=== PATIENT | male | born 1955 | race Caucasian/White ===

== ENCOUNTER 2018-12-25 06:18 | Inpatient (IN) | payer BC ==
--- NOTE | 2018-12-20 10:00 | RAD REPORT ---
EXAM DESCRIPTION: RAD - Chest Pa And Lat (2 Views) - 12/20/2018 9:14 am CLINICAL HISTORY: Preop chest, pending knee surgery, smoking history COMPARISON: April 2016 TECHNIQUE: PA and lateral views of the chest were obtained. FINDINGS: The lungs are clear of an acute infiltrate, mass or failure finding. Mild prominence of th e interstitial pattern has not changed. Diaphragm is flattened. Mediastinal and hilar regions are not clearly different. Heart size is normal and central vasculature is within normal limits. No pleur al effusion or pneumothorax seen. No acute bony finding noted. No aortic abnormality. IMPRESSION: Fibrotic an obstructive lung changes are present similar to comparison. No acute finding .
[2018-12-20 10:39] LABS: Urine Appearance CLEAR; Urine Bilirubin NEGATIVE (NEG); Urine Blood NEGATIVE (NEG); Urine Color YELLOW; Urine Glucose 3+ (NEG); Urine Protein NEGATIVE (NEG); Urine Specific Gravity 1.025 (1.005-1.030)
[2018-12-20 10:43] LABS: Urine Microscopic Reflex NO UMIC
[2018-12-20 10:43] LABS: Absolute Lymphocytes (CBC) 1.4 K/uL (0.7-4.9); Absolute Monocytes 1.2 K/uL (0.1-1.3); Absolute Neutrophil 7.4 K/uL (1.8-8.0); Basophils % 0.2 % (0-1.3); Eosinophils % 0.9 % (0-4.4); Hematocrit 43.3 % (39.6-49.0); Lymphocytes % 13.9 % (15.3-44.8); MPV 9.3 fL (7.6-11.3); Monocytes % 11.7 % (3.3-12.3); RBC Red Blood Cell Count 4.88 M/uL (4.33-5.43)
[2018-12-20 10:49] LABS: Protime INR 1.02
[2018-12-20 10:51] LABS: ALT/SGPT 20 U/L (12-78); AST/SGOT 12 U/L (15-37); Albumin 3.4 g/dL (3.4-5.0); Alkaline Phosphatase 66 U/L (45-117); BUN Blood Urea Nitrogen 16 mg/dL (7-18); Bicarbonate 30 mmol/L (21-32); Bilirubin Total 0.4 mg/dL (0.2-1.0); Glucose Level 110 mg/dL (74-106); Potassium 4.1 mmol/L (3.5-5.1); Protein, Total 7.1 g/dL (6.4-8.2); Sodium Level 144 mmol/L (136-145)
[2018-12-20 10:54] LABS: Albumin 3.4 g/dL (3.4-5.0); Bilirubin Direct 0.1 mg/dL (0-0.2); Bilirubin Total 0.4 mg/dL (0.2-1.0); Protein, Total 7.1 g/dL (6.4-8.2)
--- OUTSIDE RECORDS SUMMARY | 2018-12-25 06:25 | XMS REPORT | Continuity of Care Document ---
:[address] [facility] Care Team Providers Name Role Phone MD Chavez Robert Unavailable Unavailable Insurance Providers Payer name Policy type / Policy ID Covered libertarian ID Policy [employer] Coverage type [facility] (PPO) Encounters Encounter Performer Location Date Lab Report Jl Chavez MD [facility] [place] Sep 22, 2014 Internal Medicine Allergies, Adverse Reactions, Alerts Type Substance Reaction Status Drug allergy CODIENE rash Active Problems Problem Effective Dates Problem Status DEPRESSION Active FATIGUE Dec 16, 2013 Active HYPERLIPIDEMIA Dec 16, 2013 Active Procedures Date Description Comments Dec 16, 2013 smoking status current every day smoker Dec 28, 2006 colonoscopy 12/28/2006 May 12, 2014 smoking status Current every day smoker Sep 22, 2014 smoking status Current every day smoker Medications Medication Instructions Start Date Status PRAVASTATIN SODIUM 80 MG TABS 1 po daily Dec 16, 2013 Active MELATONIN ER 3 MG CR-TABS 1 po qHS prn sleep Dec 16, 2013 Active VENLAFAXINE HCL 75 MG TABS 1 TAB PO DAILY Jan 16, 2014 Active CELEBREX 200 MG CAPS 1 CAP PO DAILY as needed for Jan 16, 2014 Active pain MYRBETRIQ 25 MG [id number] 1 by mouth daily Jan 16, 2014 Active TAMSULOSIN HCL 0.4 MG CAPS 1 by mouth with evening meal Jan 16, 2014 Active ZOLPIDEM TARTRATE 10 MG TABS 1 po qHS prn sleep Dec 16, 2013 Inactive ANDROGEL PUMP 20.25 MG/ACT apply 2 pumps to skin daily Dec 16, 2013 Inactive (1.62%) GEL LUNESTA 3 MG TABS 1 tablet at bedtime as needed May 12, 2014 Active for insomnia Vital Signs Date Description Test Result Dec 16, 2013 height E&M - 8302-2 HEIGHT 70.75 in Dec 16, 2013 weight E&M - 3141-9 WEIGHT 286 lb Dec 16, 2013 temperature E&M TEMPERATURE 98.1 deg f Dec 16, 2013 pulse rate E&M - 8867-4 PULSE RATE 64 /min Dec 16, 2013 blood pressure, systolic - 8480-6 BP SYSTOLIC 144 mm Hg Dec 16, 2013 blood pressure, diastolic - 8462-4 BP DIASTOLIC 90 mm Hg May 12, 2014 weight E&M - 3141-9 WEIGHT 284 lb May 12, 2014 temperature E&M TEMPERATURE 98.2 deg f May 12, 2014 pulse rate E&M - 8867-4 PULSE RATE 72 /min May 12, 2014 blood pressure, systolic - 8480-6 BP SYSTOLIC 140 mm Hg May 12, 2014 blood pressure, diastolic - 8462-4 BP DIASTOLIC 96 mm Hg Sep 22, 2014 weight E&M - 3141-9 WEIGHT 285 lb Sep 22, 2014 temperature E&M TEMPERATURE 97.9 deg f Sep 22, 2014 pulse rate E&M - 8867-4 PULSE RATE 80 /min Sep 22, 2014 blood pressure, systolic - 8480-6 BP SYSTOLIC 132 mm Hg Sep 22, 2014 blood pressure, diastolic - 8462-4 BP DIASTOLIC 94 mm Hg Results Date Description Test Name Value Reference Interpretation Status May 05, cholesterol, serum CHOLESTEROL 160 mg/dl [phone] May 05, HDL cholesterol, HDL 47 mg/dl -62 2013 serum May 05, LDL cholesterol, LDL 87 mg/dl 0-130 2013 serum May 05, albumin, serum ALBUMIN 4.1 g/dL 3.5-5.0 2013May 05, alkaline phosphatase, ALK PHOS 71 U/L 2013May 05, aspartate SGOT (AST) 19 U/L 2013 aminotransferase (SGOT), serum May 05, alanine SGPT (ALT) 23 U/L 2013 aminotransferase (SGPT), serum Sep 22, cholesterol, serum CHOLESTEROL 164 mg/dl [phone] Sep 22, HDL cholesterol, HDL 52 mg/dl -62 2013Sep 22, LDL cholesterol, LDL 86 mg/dl 0-130 2013 serum Sep 22, albumin, serum ALBUMIN 4.3 g/dL 3.5-5.0 2013Sep 22, alkaline phosphatase, ALK PHOS 77 U/L -2013Sep 22, aspartate SGOT (AST) 19 U/L 2013 aminotransferase (SGOT), serum Sep 22, alanine SGPT (ALT) 23 U/L 2013 aminotransferase (SGPT), serum
--- OUTSIDE RECORDS SUMMARY | 2018-12-25 06:25 | XMS REPORT | Summary of Care ---
:1955 Author Organization [facility] Urology [facility] Address [address] [address] Encounter HQ Encntr_alias(FIN) [id number] Date(s): 08/29/17 - 08/30/17 [facility] [address] [place] [phone] Vital Signs No data available for this section Problem List Condition Effective Dates Status Health Status Informant Arthritis(Confirmed) Active Ongoing use of possibly toxic Active medication(Confirmed) Benign prostatic hypertrophy with 05/06/15 Active outflow obstruction1, 2 Depressive disorder3 Active Fatigue4 12/16/13 Active Hyperlipidemia5 12/16/13 Active 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 Allergies, Adverse Reactions, Alerts Substance Reaction Severity Status codeine Active Medications tamsulosin 0.4 mg oral capsule See Instructions, # 90 unknown unit, Refill(s) 1, TAKE 1 CAPSULE DAILY, Pharmacy : [facility] Start Date: 08/29/17 Status: Ordered Results No data available for this section Immunizations No data available for this section Procedures Procedure Date Related Diagnosis Body Site Hip replacement 07/04/16 Arthroscopy of knee Injection1 Injection2 Social History Social History Type Response Employment/School Status: Retired. Alcohol Current, Type Beer. Frequency: 1-2 times per week. Smoking Status Current every day smoker; Type: Cigarettes; Exposure to Tobacco Smoke pt is a smoker; Cigarette Smoking Last 365 Days Yes; Reg Smoking Cessation Counseling No; Tobacco use per day: 1; Started at age: 20.0; 1 1Patient states he has smoked 3 packs per week for the last 40 years Assessment and Plan No data available for this section
--- OUTSIDE RECORDS SUMMARY | 2018-12-25 06:25 | XMS REPORT | Continuity of Care Document ---
:[address] [facility] Care Team Providers Name Role Phone MD Jean Zachary Unavailable Unavailable Insurance Providers Payer name Policy type / Policy ID Covered democrat ID Policy [employer] Coverage type [facility] (O) Encounters Encounter Performer Location Date Lab Report Juliano Jean MD [facility] May 06, 2015 ([facility]) Urology Allergies, Adverse Reactions, Alerts Type Substance Reaction Status Drug allergy CODIENE rash Active Problems Problem Effective Dates Problem Status DEPRESSION Active FATIGUE Dec 16, 2013 Active HYPERLIPIDEMIA Dec 16, 2013 Active BPH WITH OBSTRUCTION/LUTS May 06, 2015 Active URGENCY OF URINATION May 06, 2015 Active Procedures Date Description Comments Dec 16, 2013 smoking status current every day smoker Dec 28, 2006 colonoscopy 12/28/2006 May 12, 2014 smoking status Current every day smoker Sep 22, 2014 smoking status Current every day smoker Jan 21, 2015 smoking status Current every day smoker Medications [...] 16, 2014 Active pain MYRBETRIQ 25 MG [id number] 1 by mouth daily Jan 16, 2014 [...] - 8462-4 BP DIASTOLIC 94 mm Hg Jan 21, 2015 height E&M - 8302-2 HEIGHT 71.0 in Jan 21, 2015 weight E&M - 3141-9 WEIGHT 297 lb Jan 21, 2015 temperature E&M TEMPERATURE 98.1 deg f Jan 21, 2015 pulse rate E&M - 8867-4 PULSE RATE 60 /min Jan 21, 2015 blood pressure, systolic - 8480-6 BP SYSTOLIC 118 mm Hg Jan 21, 2015 blood pressure, diastolic - 8462-4 BP DIASTOLIC 86 mm Hg May 06, 2015 weight E&M - 3141-9 WEIGHT 288 lb May 06, 2015 pulse rate E&M - 8867-4 PULSE RATE 64 /min May 06, 2015 blood pressure, systolic - 8480-6 BP SYSTOLIC 132 mm Hg May 06, 2015 blood pressure, diastolic - 8462-4 BP DIASTOLIC 88 mm Hg Results Date Description Test Name Value Reference Interpretation Status Jan 21, hemoglobin, blood HGB 15.0 g/dL 12.3-17.3 2014Jan 21, hematocrit, blood HCT 44.6 % 36.7-50.5 2014May 05, cholesterol, serum CHOLESTEROL 160 mg/dl [phone] May 05, HDL cholesterol, HDL 47 mg/dl 26-62 2013 serum May 05, LDL cholesterol, LDL 87 mg/dl 0-130 2013 serum May 05, albumin, serum ALBUMIN 4.1 g/dL 3.5-5.0 2013May 05, alkaline phosphatase, ALK PHOS 71 U/L 2013 serum May 05, aspartate SGOT (AST) 19 U/L 2013 aminotransferase (SGOT), serum May 05, alanine SGPT (ALT) 23 U/L 2013 aminotransferase (SGPT), serum Sep 22, cholesterol, serum CHOLESTEROL 164 mg/dl [phone] Sep 22, HDL cholesterol, HDL 52 mg/dl 26-62 2013 serum Sep 22, LDL cholesterol, LDL 86 mg/dl 0-130 2013 serum Sep 22, albumin, serum ALBUMIN 4.3 g/dL 3.5-5.0 2013Sep 22, alkaline phosphatase, ALK PHOS 77 U/L 2013Sep 22, aspartate SGOT (AST) 19 U/L 2013 aminotransferase (SGOT), serum Sep 22, alanine SGPT (ALT) 23 U/L 2013 aminotransferase (SGPT), serum Jan 21, thyroxine, serum, T4, TOTAL 10.6 ug/dl 5.1-11.1 2014 total Jan 21, thyroid stimulating TSH 1.02 0.34-5.60 2015 hormone, serum uIU/mL May 06, prostate specific PSA 1.00 ng/mL 0.00-4.00 2015 antigen
--- OUTSIDE RECORDS SUMMARY | 2018-12-25 06:25 | XMS REPORT | Continuity of Care Document ---
:1955 Author Organization [facility] Care Team Providers Name Role Phone MD Chavez Robert Unavailable Unavailable Insurance Providers Payer name Policy type / Policy ID Covered green party ID Policy [employer] Coverage type [facility] (PPO) Encounters Encounter Performer Location Date Lab Report Jl Chavez MD [facility] [place] Sep 22, 2014 Internal [...] 1 CAP PO DAILY as needed for pain Jan 16, 2014 Active MYRBETRIQ 25 MG [id number] 1 by mouth daily Jan 16, 2014 Active TAMSULOSIN HCL 0.4 MG CAPS 1 by mouth with evening meal Jan 16, 2014 Active ZOLPIDEM TARTRATE 10 MG TABS 1 po qHS prn sleep Dec 16, 2013 Inactive Vital Signs Date Description Test Result Dec [...] May 05, cholesterol, serum CHOLESTEROL 160 mg/dl [phone] May 05, HDL cholesterol, HDL 47 mg/dl -2013 serum May 05, LDL cholesterol, LDL 87 mg/dl 0-130 2013 serum May 05, albumin, serum ALBUMIN 4.1 g/dL 3.5-5.0 2013May 05, alkaline phosphatase, ALK PHOS 71 U/L 2013 serum May 05, aspartate SGOT (AST) 19 U/L 2013 aminotransferase (SGOT), serum May 05, alanine SGPT (ALT) 23 U/L 2013 aminotransferase (SGPT), serum Sep 22, cholesterol, serum CHOLESTEROL 164 mg/dl [phone] Sep 22, HDL cholesterol, HDL 52 mg/dl -2013 serum Sep 22, LDL cholesterol, LDL 86 mg/dl 0-130 2013 serum Sep 22, albumin, serum ALBUMIN 4.3 g/dL 3.5-5.0 2013Sep 22, alkaline phosphatase, ALK PHOS 77 U/L 2013 serum Sep 22, aspartate SGOT (AST) 19 U/L 2013 aminotransferase (SGOT), serum Sep 22, alanine SGPT (ALT) 23 U/L 2013 aminotransferase (SGPT), serum
--- OUTSIDE RECORDS SUMMARY | 2018-12-25 06:25 | XMS REPORT | Continuity of Care Document ---
:1955 Author Organization [facility] Care Team Providers Name Role Phone MD Chavez Robert Unavailable Unavailable Insurance Providers Payer name Policy type / Policy ID Covered constitution party ID Policy [employer] Coverage type [facility] (O) Encounters Encounter Performer Location Date Lab Report Jl Chavez MD [facility] [place] Jan 21, 2015 Internal Medicine Allergies, Adverse Reactions, Alerts Type [...] 16, 2014 Active pain MYRBETRIQ 25 MG [id number] 1 by mouth daily Jan 16, 2014 [...] - 8462-4 BP DIASTOLIC 86 mm Hg Results Date Description Test Name Value Reference Interpretation Status Jan 21, hemoglobin, blood HGB 15.0 g/dL 12.3-17.3 2014Jan 21, hematocrit, blood HCT 44.6 % 36.7-50.5 2014May 05, cholesterol, serum CHOLESTEROL 160 mg/dl [phone] May 05, HDL cholesterol, HDL 47 mg/dl 26-62 2013May 05, LDL cholesterol, LDL 87 mg/dl 0-130 2013 serum May 05, albumin, serum ALBUMIN 4.1 g/dL 3.5-5.0 2013May 05, alkaline phosphatase, ALK PHOS 71 U/L 32-96 2013 serum May 05, aspartate SGOT (AST) 19 U/L 10-42 2013 aminotransferase (SGOT), serum May 05, alanine SGPT (ALT) 23 U/L 11-43 2013 aminotransferase (SGPT), serum Sep 22, cholesterol, serum CHOLESTEROL 164 mg/dl [phone] Sep 22, HDL cholesterol, HDL 52 mg/dl 26-62 2013 serum Sep 22, LDL cholesterol, LDL 86 mg/dl 0-130 2013 serum Sep 22, albumin, serum ALBUMIN 4.3 g/dL 3.5-5.0 2013Sep 22, alkaline phosphatase, ALK PHOS 77 U/L 32-96 2013 serum Sep 22, aspartate SGOT (AST) 19 U/L 10-42 2013 aminotransferase (SGOT), serum Sep 22, alanine SGPT (ALT) 23 U/L 11-43 2013 aminotransferase (SGPT), serum Jan 21, thyroxine, serum, T4, TOTAL 10.6 ug/dl 5.1-11.1 2014 total Jan 21, thyroid stimulating TSH 1.02 0.34-5.60 2015 hormone, serum uIU/mL
--- OUTSIDE RECORDS SUMMARY | 2018-12-25 06:25 | XMS REPORT | Summary of Care ---
:1955 Author Organization [facility] Urology [facility] Address [address] [address] Encounter HQ Encntr_alilu(FIN) [id number] Date(s): 04/07/18 - 04/08/18 [facility] [address] [place] [phone] Vital Signs No data available for this [...] Substance Reaction Severity Status codeine Active Medications No data available for this section Results No data available for this section Immunizations No data available for this section Procedures Procedure Date Related Diagnosis Body Site Status Hip replacement 07/04/16 Completed Arthroscopy of knee Completed Injection1 Completed Injection2 Completed Social History Social History Type Response Employment/School Status: Retired. Alcohol Current, Type Beer. Frequency: 1-2 times per week. Smoking Status Current every day smoker; Type: Cigarettes; Exposure to Tobacco Smoke pt is a smoker; Cigarette Smoking Last 365 Days Yes; Reg Smoking Cessation Counseling No; Tobacco use per day: 1; Started at age: 20.0; 1 entered on: 10/06/16 1Patient states he has smoked 3 packs per week for the last 40 years Assessment and Plan No data available for this section
--- OUTSIDE RECORDS SUMMARY | 2018-12-25 06:25 | XMS REPORT | Summary of Care ---
:1955 Author Organization [facility] Cardiology [facility] Address [address] [address] Encounter HQ Leonr_tien(FIN) [id number] Date(s): 12/12/18 - 12/12/18 [facility] Cardiology [facility] [address] [place] [phone] Discharge Disposition: Home or Self Care Attending Physician: VISIT, NURSE STRB SLEEP Vital Signs Most recent to oldest [Reference Range]: 1 Blood Pressure [90-140/60-90 mmHg] 119/69 mmHg (12/12/18 9:46 AM) Peripheral Pulse Rate [60-100 bpm] 69 bpm (12/12/18 9:46 AM) Problem List Condition Effective Dates Status Health Status Informant Arthritis(Confirmed) Active Ongoing use of possibly toxic Active medication(Confirmed) Benign prostatic hypertrophy with 05/06/15 Active outflow obstruction1, 2 Depressive disorder3 Active Diabetes(Confirmed) Active Fatigue4 12/16/13 Active Hyperlipidemia5 12/16/13 Active Hypersomnia with sleep 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 Active Hypertension(Confirmed) Active Initial insomnia(Confirmed) Active Morbid obesity(Confirmed) Active Nocturia(Confirmed) Active Obesity(Confirmed) Active Obstructive sleep apnea, Active adult(Confirmed) Preop cardiovascular exam(Confirmed) Active Urgent desire to urinate7, 8 05/06/15 Active 1Data migrated from [employer] on 06/06/15.2Data migrated from [employer] on 05/20/15.3Data migrated from [employer] on 03/17/15.4Data migrated from [employer] on 03/17/15.5Data migrated from [employer] on 03/17/15.6Data migrated from [employer] on 06/06/15.7Data migrated from [employer] on .8Data migrated from [employer] on 05/20/15. Allergies, Adverse Reactions, Alerts Substance Reaction Severity Status codeine Active Medications Jardiance 25 mg oral tablet 25 mg=1 tab, PO, QAM, 0 Refill(s) Start Date: 12/12/18 Status: OrderedmetFORMIN 500 mg oral tablet 500 mg=1 tab, PO, BID-Meals, # 30 tab, 0 Refill(s) Start Date: 12/12/18 Status: Orderedmultivitamin Daily, 0 Refill(s) Start Date: 12/12/18 Status: OrderedOmega-3 oral capsule 0 Refill(s) Start Date: 12/12/18 Status: Orderedoxybutynin 10 mg oral tablet, extended release 10 mg=1 tab, PO, Daily, # 30 tab, 0 Refill(s) Start Date: 12/12/18 Status: Orderedtrazodone 50 mg oral tablet 50 mg=1 tab, PO, TID, 0 Refill(s) Start Date: 12/12/18 Status: OrderedVitamin D2 See Instructions, PO, 0 Refill(s) Start Date: 12/12/18 Status: Ordered Results No data available for [...] Started at age: 20.0; 1 entered on: 12/12/18 1Patient states he has smoked 3 packs per week for the last 40 years Assessment and Plan No data available for this section
--- OUTSIDE RECORDS SUMMARY | 2018-12-25 06:25 | XMS REPORT | Continuity of Care Document ---
:1955 Author Organization Interface Problems Problem Status Onset Classification Date Comments Source Date Reported Hypersomnia with Active 05/25/20 Problem 12/14/2018 Data migrated Medical sleep 15 from GE Group apnea<sup>6</sup> Centricity on 06/06/15. HYPERSOMNIA Active 05/25/20 Condition 06/29/2015 Medical W/SLEEP APNEA 15 Group Benign prostatic Active 05/06/20 Problem 12/14/2018 Data migrated Medical hypertrophy with 15 from GE Group outflow Centricity on obstruction<sup>1 05/20/15. , 2</sup> Urgent desire to Active 05/06/20 Problem 12/14/2018 Data migrated Medical urinate<sup>7, 15 from [facility] Group 8</sup> Centricity on 05/20/15. BPH WITH Active 05/06/20 Condition 06/29/2015 Medical OBSTRUCTION/LUTS 15 Group URGENCY OF Active 05/06/20 Condition 06/29/2015 Medical URINATION 15 Group ELIA Active 02/06/20 [place] 15 Land Fatigue<sup>4</skelton Active 12/17/19 Problem 12/14/2018 Data migrated Medical p> 14 from GE Group Centricity on 03/17/15. Hyperlipidemia<skelton Active 12/17/19 Problem 12/14/2018 Data migrated Medical p>5</sup> 14 from GE Group Centricity on 03/17/15. FATIGUE Active 12/17/19 Condition 06/29/2015 Medical 14 Group HYPERLIPIDEMIA Active 12/17/19 Condition 06/29/2015 Medical 14 Group Arthritis Active Problem 12/14/2018 Medical Group Ongoing use of Active Problem 12/14/2018 Medical possibly toxic Group medication Depressive Active Problem 12/14/2018 Data migrated Medical disorder<sup>3</s from GE Group up> Centricity on 03/17/15. Initial insomnia Active Problem 12/14/2018 Medical Group Morbid obesity Active Problem 12/14/2018 Medical Group Nocturia Active Problem 12/14/2018 Medical Group Obesity Active Problem 12/14/2018 Medical Group Obstructive sleep Active Problem 12/14/2018 Medical apnea, adult Group Diabetes Active Problem 12/14/2018 Medical Group Hypertension Active Problem 12/14/2018 Medical Group Preop Active Problem 12/14/2018 Medical cardiovascular Group exam DEPRESSION Active Condition 06/29/2015 Medical Group Smoking addiction Active Problem 09/29/2018 [facility] Primary insomnia Active Problem 09/29/2018 [facility] Anxiety Active Problem 09/29/2018 [facility] ELIA Active Problem 09/29/2018 [facility] Increased urinary Active Diagnosis 01/19/2018 Center for frequency Primary Care Depression, Active Problem 09/29/2018 [facility] for major, recurrent, Primary moderate Care Mixed Active Problem 09/29/2018 [facility] for hyperlipidemia Primary Care Uncontrolled Active Diagnosis 09/29/2018 [facility] for diabetes mellitus Primary type 2 without Care complications, unspecified alf insulin use status New onset type 2 Active Diagnosis 05/31/2017 [facility] for diabetes mellitus Primary Care Medications Medication Details Route Status Patient Ordering Order Source Instructions Provider Date empagliflozin 25 mg=1 Active 25 MG Oral tab, PO, 019 Medical Tablet QAM, 0 Group [Jardiance] Refill(s) multivitamin Daily, 0 Active Refill(s) 019 Medical Group Metformin 500 mg=1 Active hydrochloride tab, PO, 019 Medical 500 MG Oral BID-Meals, Group Tablet # 30 tab, 0 Refill(s) [place]-3 oral 0 Active capsule Refill(s) 019 Medical Group Trazodone 50 mg=1 Active Hydrochloride tab, PO, 019 Medical 50 MG Oral TID, 0 Group Tablet Refill(s) Vitamin D2 See Active In[facility] 019 Medical ns, PO, 0 Group Refill(s) oxybutynin 10 10 mg=1 Active MH mg oral tablet, tab, PO, 019 Medical extended Daily, # Group release 30 tab, 0 Refill(s) Jardiance 1 tablet Orally Active 10 MG Orally [facility] Once a day 018 for Primary Care CPAP with use with per mask of Active cm H20 per [facility] supplies and sleep choice mask of choice 018 for mask of choice daily Primary Care tamsulosin 0.4 See Active MH mg oral capsule Instructio 017 Medical ns, # 90 Group unknown unit, Refill(s) 1, TAKE 1 CAPSULE DAILY, Pharmacy: [facility] Verio as In Vitro Active - In Vitro BID [facility] directed 017 for Primary Care ONE TOUCH ULTRA as In Vitro Active In Vitro Twice [facility] GLUCOMETER directed a day AC and 017 for STARTER as directed Primary Care ONE TOUCH ULTRA Check CBGs Intradermal Active Glucometer [facility] TEST SUPPLIES BID as Supplies 017 for directed Intradermal Primary Twice per day Care AC as directed LUNESTA 3 MG 1 tablet Active MH TABS at bedtime 014 Medical as needed Group for insomnia LUNESTA 3 MG 1 tablet Active MH TABS at bedtime 014 Medical as needed Group for insomnia VENLAFAXINE HCL 1 TAB PO Active MH 75 MG TABS DAILY 014 Medical Group MYRBETRIQ 25 MG 1 by mouth Active MH [id number] daily 014 Medical Group TAMSULOSIN HCL 1 by mouth Active MH 0.4 MG CAPS with 014 Medical evening Group meal CELEBREX 200 MG 1 CAP PO No MH CAPS DAILY as Longer 014 Medical needed for Active Group pain VENLAFAXINE HCL 1 TAB PO Active MH 75 MG TABS DAILY 014 Medical Group CELEBREX 200 MG 1 CAP PO Active MH CAPS DAILY as 014 Medical needed for Group pain PRAVASTATIN 1 po daily Active MH SODIUM 80 MG 014 Medical TABS Group MELATONIN ER 3 1 po qHS Active MH MG CR-TABS prn sleep 014 Medical Group ZOLPIDEM 1 po qHS No MH TARTRATE 10 MG prn sleep Longer 014 Medical TABS Active Group ANDROGEL PUMP apply 2 No MH 20.25 MG/ACT pumps to Longer 014 Medical (1.62%) GEL skin daily Active Group ZOLPIDEM 1 po qHS No MH TARTRATE 10 MG prn sleep Longer 014 Medical TABS Active Group Ditropan XL 1 upto 2 Orally Active 5 MG Orally [facility] tablet Once a day for Primary Care MetFORMIN HCl 2 tablet Oral Active 500MG Oral [facility] ER with meals Twice a day for Primary Care Allergies, Adverse Reactions, Alerts Substance Category Reaction Severity Reaction Status Date Comments Source type Reported CODIENE Drug CODIENE allergy 4 Medical Group codeine Assertion Drug Active allergy Medical Group Immunizations Immunization Date Given Site Status Last Updated Comments Source Results Order Name Results Value Reference Date Interpretation Comments Source Range Chemistry PSA 1.00 0.00 - 4.00 ng/mL 2014 Medical Group Chemistry T4, TOTAL 10.6 5.1 - 11.1 ug/dl 2014 Medical Group Chemistry TSH 1.02 0.34 - 5.60 uIU/mL 2014 Medical Group Hematology HGB 15.0 12.3 - 17.3 g/dL 2014 Medical Group Hematology HCT 44.6 % 36.7 - 50.5 2014 Medical Group Chemistry CHOLESTEROL 164 120 - 200 mg/dl 2013 Medical Group Chemistry HDL 52 26 - 62 mg/dl 2013 Medical Group Chemistry LDL 86 0 - 130 mg/dl 2013 Medical Group Chemistry ALBUMIN 4.3 3.5 - 5.0 g/dL 2013 Medical Group Chemistry ALK PHOS 77 U/L 32 - 96 2013 Medical Group Chemistry SGOT (AST) 19 U/L 10 - 42 2013 Medical Group Chemistry SGPT (ALT) 23 U/L 11 - 43 2013 Medical Group Chemistry CHOLESTEROL 164 120 - 200 mg/dl 2013 Medical Group Chemistry HDL 52 26 - 62 mg/dl 2013 Medical Group Chemistry CHOLESTEROL 160 120 - 200 mg/dl 2013 Medical Group Chemistry HDL 47 26 - 62 mg/dl 2013 Medical Group Chemistry LDL 87 0 - 130 mg/dl 2013 Medical Group Chemistry ALBUMIN 4.1 3.5 - 5.0 g/dL 2013 Medical Group Chemistry ALK PHOS 71 U/L 32 - 96 2013 Medical Group Chemistry SGOT (AST) 19 U/L 10 - 42 2013 Medical Group Chemistry SGPT (ALT) 23 U/L 11 - 43 2013 Medical Group Chemistry CHOLESTEROL 160 120 - 200 mg/dl 2013 Medical Group Chemistry HDL 47 26 - 62 mg/dl 2013 Medical Group Vital Signs Vital Sign Value Date Comments Source Heart Rate 69 12/12/2018 Medical Group Systolic (mm Hg) 119 12/12/2018 Medical Group Diastolic (mm Hg) 69 12/12/2018 Medical Group Weight 285 06/05/2015 Medical Group Temperature Oral (F) 98.2 F 06/05/2015 Medical Group Heart Rate 68 06/05/2015 Medical Group Systolic (mm Hg) 116 06/05/2015 Medical Group Diastolic (mm Hg) 76 06/05/2015 Medical Group Weight 282 05/25/2015 Medical Group Temperature Oral (F) 98.1 F 05/25/2015 Medical Group Heart Rate 64 05/25/2015 Medical Group Systolic (mm Hg) 130 05/25/2015 Medical Group Diastolic (mm Hg) 96 05/25/2015 Medical Group Weight 288 05/06/2015 Medical Group Heart Rate 64 05/06/2015 Medical Group Systolic (mm Hg) 132 05/06/2015 Medical Group Diastolic (mm Hg) 88 05/06/2015 Medical Group Height 71.0 01/21/2015 Medical Group Weight 297 01/21/2015 Medical Group Temperature Oral (F) 98.1 F 01/21/2015 Medical Group Heart Rate 60 01/21/2015 Medical Group Systolic (mm Hg) 118 01/21/2015 Medical Group Diastolic (mm Hg) 86 01/21/2015 Medical Group Weight 285 09/22/2014 Medical Group Temperature Oral (F) 97.9 F 09/22/2014 Medical Group Heart Rate 80 09/22/2014 Medical Group Systolic (mm Hg) 132 09/22/2014 Medical Group Diastolic (mm Hg) 94 09/22/2014 Medical Group Weight 284 05/12/2014 Medical Group Temperature Oral (F) 98.2 F 05/12/2014 Medical Group Heart Rate 72 05/12/2014 Medical Group Systolic (mm Hg) 140 05/12/2014 Medical Group Diastolic (mm Hg) 96 05/12/2014 Medical Group Height 70.75 12/16/2013 Medical Group Weight 286 12/16/2013 Medical Group Temperature Oral (F) 98.1 F 12/16/2013 Medical Group Heart Rate 64 12/16/2013 Medical Group Systolic (mm Hg) 144 12/16/2013 Medical Group Diastolic (mm Hg) 90 12/16/2013 Medical Group Encounters Location Location Encounter Encounter Reason Attending ADM DC Status Source Details Type Number For Provider Date Date Visit [facility] Lab Report [id number] Pat[place] 09/22 09/22 [place] [facility] [address] [facility] Juliann Omalley MD Group Internal Medicine [facility] Office [id number] Pat[place] 01/21 01/21 [place] [id number] [facility] Juliann Omalley MD Group Internal Medicine [facility] Lab Report [id number] 01/21 [place] [address] [facility] Juliann Omalley MD [facility] Internal Medicine [facility] [place] Lab Report [id number] [place] 05/06 05/06 [place] [id number] MD Miranda /2014 Medical [facility] Urology Outpatient [id number] [place] 05/06 [facility] [place] [facility] [place] Office [id number] [place] 05/25 05/25 [place] [id number] MD Miranda /2014 Medical Shahram [facility] Internal Medicine Outpatient [id number] 05/25 Active [facility] 2 [facility] Office [id number] [place] 06/26 06/26 [place] Visit [id number] MD Miranda /2014 Medical [facility] Group Internal Medicine Outpatient [id number] 06/26 Active [facility] 5 [facility] Office [id number] [place] 06/29 06/29 [place] Visit [id number] MD Miranda /2014 Medical Omalley [facility] Internal Medicine Outpatient [id number] 06/29 Active [facility] 4 [facility] Outpatient [id number] ARM[place] 08/12 Active [facility] [place] Outpatient [id number] 09/25 Active [facility] 6 [place] Outpatient [id number] 10/21 Active [facility] 8 [facility]patient [id number] PATI 12/31 Active [facility] 9 [place] Outpatient [id number] PATI 01/25 Active [facility] 0 [place] Outpatient [id number] PATI 03/31 Active [facility] 1 [facility] Outpatient [id number] MONICA 04/13 Active [facility] 1 [place] Outpatient [id number] PATI 05/24 Active [facility] 2 [place] Outpatient [id number] PATI 06/23 Active [facility] 3 [facility] Outpatient [id number] PATI 10/06 Active [facility] 6 [place] Outpatient [id number] PATI 11/14 Active [facility] 4 [facility] Phone [id number] 08/29 08/31 Urology Message [facility] [place] [facility] Outside [id number] 04/07 04/09 Urology [facility] [place] [facility] Outpatient [id number] MOE NORA 12/12 Active [facility] Outpatient [id number] NURSE VISIT 12/12 12/13 Cardiology [facility] [place] [facility] Procedures Procedure Code Date Perfomer Comments Source Hip replacement [id number] 07/04/2016 Medical Group colonoscopy 60233 12/28/2006 12/28/2006 Medical Group Arthroscopy of [id number] Medical knee Group Injection<sup>1</s [id number] 07/2015 Medical up> Group Injection<sup>2</s [id number] 07/2015 Medical up> Group
--- OUTSIDE RECORDS SUMMARY | 2018-12-25 06:26 | XMS REPORT | Continuity of Care Document ---
:1955 Author Organization [facility] Care Team Providers Name Role Phone MD Jean Zachary Unavailable Unavailable Insurance Providers Payer name Policy type / Policy ID Covered libertarian ID Policy Baxter Coverage type [facility] (O) Encounters Encounter Performer Location Date Office Visit Juliano Jean MD [facility] Medical [place] Internal Jun 29, 2015 Medicine Allergies, Adverse Reactions, Alerts Type Substance Reaction Status Drug allergy CODIENE rash Active Problems Problem Effective Dates Problem Status DEPRESSION Active FATIGUE Dec 16, 2013 Active HYPERLIPIDEMIA Dec 16, 2013 Active BPH WITH OBSTRUCTION/LUTS May 06, 2015 Active URGENCY OF URINATION May 06, 2015 Active HYPERSOMNIA W/SLEEP APNEA May 25, 2015 Active Procedures Date Description Comments Dec 16, 2013 smoking status current every day smoker Dec 28, 2006 colonoscopy 12/28/2006 May 12, 2014 smoking status Current every day smoker Sep 22, 2014 smoking status Current every day smoker Jan 21, 2015 smoking status Current every day smoker May 25, 2015 smoking status Current every day smoker Medications Medication Instructions Start Date Status PRAVASTATIN SODIUM 80 MG TABS 1 po daily Dec 16, 2013 Active MELATONIN ER 3 MG CR-TABS 1 po qHS prn sleep Dec 16, 2013 Active VENLAFAXINE HCL 75 MG TABS 1 TAB PO DAILY Jan 16, 2014 Active MYRBETRIQ 25 MG [id number] 1 by mouth daily Jan 16, 2014 [...] needed May 12, 2014 Active for insomnia CELEBREX 200 MG CAPS 1 CAP PO DAILY as needed for Jan 16, 2014 Inactive pain Vital Signs Date Description Test Result Dec [...] - 8462-4 BP DIASTOLIC 88 mm Hg May 25, 2015 weight E&M - 3141-9 WEIGHT 282 lb May 25, 2015 temperature E&M TEMPERATURE 98.1 deg f May 25, 2015 pulse rate E&M - 8867-4 PULSE RATE 64 /min May 25, 2015 blood pressure, systolic - 8480-6 BP SYSTOLIC 130 mm Hg May 25, 2015 blood pressure, diastolic - 8462-4 BP DIASTOLIC 96 mm Hg Jun 05, 2015 weight E&M - 3141-9 WEIGHT 285 lb Jun 05, 2015 temperature E&M TEMPERATURE 98.2 deg f Jun 05, 2015 pulse rate E&M - 8867-4 PULSE RATE 68 /min Jun 05, 2015 blood pressure, systolic - 8480-6 BP SYSTOLIC 116 mm Hg Jun 05, 2015 blood pressure, diastolic - 8462-4 BP DIASTOLIC 76 mm Hg Results Date Description Test Name Value Reference Interpretation Status Jan 21, hemoglobin, blood HGB 15.0 g/dL 12.3-17.3 2014Jan 21, hematocrit, blood HCT 44.6 % 36.7-50.5 2014May 05, cholesterol, serum CHOLESTEROL 160 mg/dl [phone] May 05, HDL cholesterol, HDL 47 mg/dl -2013May 05, LDL cholesterol, LDL 87 mg/dl 0-130 2013May 05, albumin, serum ALBUMIN 4.1 g/dL 3.5-5.0 2013May 05, alkaline phosphatase, ALK PHOS 71 U/L 2013May 05, aspartate SGOT (AST) 19 U/L 2013 aminotransferase (SGOT), serum May 05, alanine SGPT (ALT) 23 U/L 2013 aminotransferase (SGPT), serum Sep 22, cholesterol, serum CHOLESTEROL 164 mg/dl [phone] Sep 22, HDL cholesterol, HDL 52 mg/dl -2013Sep 22, LDL cholesterol, LDL 86 mg/dl 0-130 2013Sep 22, albumin, serum ALBUMIN 4.3 g/dL 3.5-5.0 [...]
--- OUTSIDE RECORDS SUMMARY | 2018-12-25 06:26 | XMS REPORT ---
:1955 Author Organization eClinicalWorks Care Team Providers Name Role Phone Sha Sheehan Provider Role Unavailable Allergies No Known Allergies Problems Problem Type Condition Code Onset Dates Condition Status Problem ELIA (obstructive sleep apnea) G47.33 Active Problem Primary insomnia F51.01 Active Problem Depression, major, recurrent, F33.1 Active moderate Assessment New onset type 2 diabetes mellitus E11.9 Active Problem Mixed hyperlipidemia E78.2 Active Problem Smoking addiction F17.200 Active Medications Medication Code Code Instructions Start End Date Status Dosage System Date MetFORMIN HCl [facility] 84677670645 500MG Oral Twice Active 2 tablet ER a day with meals Results No Known Results Summary Purpose eClinicalWorks Submission
--- OUTSIDE RECORDS SUMMARY | 2018-12-25 06:26 | XMS REPORT ---
:1955 Author Organization [employer] Care Team Providers Name Role Phone Sha Sheehan Provider Role Unavailable Allergies No Known Allergies Problems Problem Type Condition Code Onset Dates Condition Status Problem Smoking addiction F17.200 Active Problem Primary insomnia F51.01 Active Problem Anxiety F41.9 Active Problem ELIA (obstructive sleep apnea) G47.33 Active Assessment Increased urinary frequency R35.0 Active Problem Depression, major, recurrent, F33.1 Active moderate Problem Mixed hyperlipidemia E78.2 Active Medications Medication Code System Code Instructions Start End Date Status Dosage Date Ditropan XL [facility] 17700645107 5 MG Orally Once Active 1 upto 2 a day tablet Results No Known Results Summary Purpose eClinicalWorks Submission
--- OUTSIDE RECORDS SUMMARY | 2018-12-25 06:26 | XMS REPORT | Continuity of Care Document ---
:1955 Author Organization [facility] Care Team Providers Name Role Phone MD Jean Zachary Unavailable Unavailable Insurance Providers Payer name Policy type / Policy ID Covered democrat ID Policy Baxter Coverage type [facility] (O) Encounters Encounter Performer Location Date Office Visit Juliano Jean MD [facility] Medical [place] [facility] May 25, 2015 Medicine Allergies, Adverse Reactions, Alerts Type [...] Jan 16, 2014 Active MYRBETRIQ 25 MG [id number] 1 by mouth daily Jan 16, 2014 [...] - 8462-4 BP DIASTOLIC 96 mm Hg Results Date Description Test Name Value Reference Interpretation Status Jan 21, hemoglobin, blood HGB 15.0 g/dL 12.3-17.3 2014Jan 21, hematocrit, blood HCT 44.6 % 36.7-50.5 2014May 05, cholesterol, serum CHOLESTEROL 160 mg/dl [phone] May 05, HDL cholesterol, HDL 47 mg/dl 26-62 2013May 05, LDL cholesterol, LDL 87 mg/dl 0-130 2013May 05, albumin, serum ALBUMIN 4.1 g/dL 3.5-5.0 2013May 05, alkaline phosphatase, ALK PHOS 71 U/L -2013May 05, aspartate SGOT (AST) 19 U/L 2013 aminotransferase (SGOT), serum May 05, alanine SGPT (ALT) 23 U/L 2013 aminotransferase (SGPT), serum Sep 22, cholesterol, serum CHOLESTEROL 164 mg/dl [phone] Sep 22, HDL cholesterol, HDL 52 mg/dl [...]
--- OUTSIDE RECORDS SUMMARY | 2018-12-25 06:26 | XMS REPORT ---
:1955 Author Organization [employer]ClinicalWorks Care Team Providers Name Role Phone Sha Sheehan Provider Role Unavailable Allergies No Known Allergies Problems Problem Type Condition Code Onset Dates Condition Status Problem ELIA (obstructive sleep apnea) G47.33 Active Problem Primary insomnia F51.01 Active Problem Depression, major, recurrent, F33.1 Active moderate Problem Mixed hyperlipidemia E78.2 Active Problem Smoking addiction F17.200 Active Medications Medication Code Code Instructions Start End Date Status Dosage System Date ONE TOUCH ND 58494256170 In Vitro Twice January Active as directed ULTRA a day AC and as 2016 GLUCOMETER directed STARTER ONE TOUCH NDC [id number] Glucometer January Active Check CBGs ULTRA TEST Supplies 2016 BID as SUPPLIES Intradermal directed Twice per day AC as directed Results No Known Results Summary Purpose eClinicalWorks Submission
--- OUTSIDE RECORDS SUMMARY | 2018-12-25 06:26 | XMS REPORT ---
:1955 Author Organization [employer]ClinicalWorks Care Team Providers Name Role Phone Sha Sheehan Provider Role Unavailable Allergies No Known Allergies Problems Problem Type Condition Code Onset Dates Condition Status Assessment ELIA (obstructive sleep apnea) G47.33 Active Problem Smoking addiction F17.200 Active Problem Primary insomnia F51.01 Active Problem Anxiety F41.9 Active Problem ELIA (obstructive sleep apnea) G47.33 Active Problem Depression, major, recurrent, F33.1 Active moderate Problem Mixed hyperlipidemia E78.2 Active Medications Medication Code System Code Instructions Start Date End Date Status Dosage CPAP with NDC 0 cm H20 per mask Aug 02, Active use with supplies and of choice daily 2018 sleep mask of choice Results No Known Results Summary Purpose eClinicalWorks Submission
--- OUTSIDE RECORDS SUMMARY | 2018-12-25 06:26 | XMS REPORT | Continuity of Care Document ---
:1955 Author Organization [facility] Care Team Providers Name Role Phone MD Jean Zachary Unavailable Unavailable Insurance Providers Payer name Policy type / Policy ID Covered libertarian ID Policy [employer] Coverage type [facility] (O) Encounters Encounter Performer Location Date Office Visit Juliano Jean MD [facility] Medical [place] Internal Jun 26, 2015 Medicine Allergies, Adverse Reactions, Alerts Type [...] Jan 16, 2014 Active MYRBETRIQ 25 MG [id number] 1 by mouth daily Jan 16, 2014 [...] 2014May 05, cholesterol, serum CHOLESTEROL 160 mg/dl [phone] May 05, HDL cholesterol, HDL 47 mg/dl -2013May 05, LDL cholesterol, LDL 87 mg/dl 0-130 2013May 05, albumin, serum ALBUMIN 4.1 g/dL 3.5-5.0 2013May 05, alkaline phosphatase, ALK PHOS 71 U/L 2013May 05, aspartate SGOT (AST) 19 U/L 2013 aminotransferase (SGOT), serum May 05, alanine SGPT (ALT) 23 U/L 2013 aminotransferase (SGPT), serum Sep 22, cholesterol, serum CHOLESTEROL 164 mg/dl [phone] Sep 22, HDL cholesterol, HDL 52 mg/dl [...]
--- OUTSIDE RECORDS SUMMARY | 2018-12-25 06:26 | XMS REPORT | Continuity of Care Document ---
:1955 Author Organization [facility] Care Team Providers Name Role Phone MD Chavez Robert Unavailable Unavailable Insurance Providers Payer name Policy type / Policy ID Covered constitution party ID Policy Baxter Coverage type [facility] (O) Encounters Encounter Performer Location Date Office Visit Jl Chavez MD [facility] Medical [place] Jan 21, 2015 Internal [...] 16, 2014 Active pain MYRBETRIQ 25 MG [id number] 1 by mouth daily Jan 16, 2014 [...] May 05, cholesterol, serum CHOLESTEROL 160 mg/dl [phone] May 05, HDL cholesterol, HDL 47 mg/dl [...] Sep 22, cholesterol, serum CHOLESTEROL 164 mg/dl [phone] Sep 22, HDL cholesterol, HDL 52 mg/dl 26-62 2013 serum Sep 22, LDL cholesterol, LDL 86 mg/dl 0-130 2013 serum Sep 22, albumin, serum ALBUMIN 4.3 g/dL 3.5-5.0 2013Sep 22, alkaline phosphatase, ALK PHOS 77 U/L 32-96 2013 serum Sep 22, aspartate SGOT (AST) 19 U/L 10-42 2013 aminotransferase (SGOT), serum Sep 22, alanine SGPT (ALT) 23 U/L 43 2013 aminotransferase (SGPT), serum
--- OUTSIDE RECORDS SUMMARY | 2018-12-25 06:26 | XMS REPORT ---
[...] moderate Problem Mixed hyperlipidemia E78.2 Active Medications No Known Medications Results No Known Results Summary Purpose eClinicalWorks Submission
--- OUTSIDE RECORDS SUMMARY | 2018-12-25 06:26 | XMS REPORT ---
:1955 Author Organization eClinicalWorks Care Team Providers Name Role Phone Sha Sheehan Provider Role Unavailable Allergies No Known Allergies Problems Problem Type Condition Code Onset Dates Condition Status Assessment Uncontrolled diabetes mellitus type E11.65 Active 2 without complications, unspecified termite renewal inspector insulin use status Problem Smoking addiction F17.200 Active Problem Primary insomnia F51.01 Active Problem Anxiety F41.9 Active Problem ELIA (obstructive sleep apnea) G47.33 Active Problem Depression, major, recurrent, F33.1 Active moderate Problem Mixed hyperlipidemia E78.2 Active Medications Medication Code System Code Instructions Start Date End Date Status Dosage Jardiance [facility] 57823935198 10 MG Orally Once Aug 29, Active 1 tablet a day 2017 Results No Known Results Summary Purpose eClinicalWorks Submission
--- OUTSIDE RECORDS SUMMARY | 2018-12-25 06:26 | XMS REPORT ---
[...] Smoking addiction F17.200 Active Medications Medication Code System Code Instructions Start End Date Status Dosage Date AlvaMariobyron Shavercheli [facility] 74815-04 - In Vitro BID April 14, Active as directed 61-50 2016 Results No Known Results Summary Purpose eClinicalWorks Submission
[2018-12-25] MEDS ORDERED: NA CHLORIDE 0.9% 1,000 ML ONE (06:44)
[2018-12-25] MEDS ORDERED: LIDOCAINE 1% MPF 5 ML VIAL ONE (06:45)
[2018-12-25] MEDS ORDERED: NA CHLORIDE 0.9% 500 ML ONE (06:50)
[2018-12-25] MEDS ORDERED: PROPOFOL 200 MG/20 ML VIAL IV ONE (07:00)
[2018-12-25] MEDS ORDERED: FENTANYL CITR 250 MCG/5 ML ONE (07:01)
[2018-12-25] MEDS ORDERED: MIDAZOLAM HCL 2 MG/2 ML INJ ONE (07:01)
[2018-12-25] MEDS ORDERED: LIDOCAINE 2% MPF 5 ML VIAL ONE (07:01)
[2018-12-25] MEDS ORDERED: DEXAMETHASONE 4 MG/ML VIAL ONE (07:07)
[2018-12-25] MEDS ORDERED: ROPLVACAINE HCL 40 ML ONE (07:07)
[2018-12-25] MEDS: CEFAZOLIN/SWI 1gm 1 GM/10 ML SYR ONE ×2 (07:12→07:55)
[2018-12-25] MEDS: TRANEXAMIC ACID 1,000 MG in NA CHLORIDE 0.9% 50 ML IV SCH ×2 (07:13→07:50)
[2018-12-25] MEDS: BUPIVACA 0.5%/EPI 0.0005%/PF 30 ML VIAL ONE ×3 (08:22→12:05)
[2018-12-25] MEDS: NA CHLORIDE 0.9% 1,000 ML ONE ×2 (09:40→09:45)
[2018-12-25] MEDS ORDERED: Ringers Lactate 0 ML IV ONE (09:49)
[2018-12-25] MEDS ORDERED: KETOROLAC 30 MG/ML INJ ONE (11:53)
--- NOTE | 2018-12-25 12:57 | P.BOP ---
Preoperative diagnosis: PRIMARY OSTEOARTHRITIS LEFT KNEE Postoperative diagnosis: SAME Primary procedure: LEFT KNEE TKA w/COMPUTER NAVIGATION, IMAGELESS Secondary procedure: REMOVAL OF CORTICAL SCREW TIBIAL TUBERCLE Bundle Shaker: JORGE DOTSON (GAVE 1ST ASSIST THROUGHOUT CASE) Estimated blood loss: 50 mL Findings: EBURNATED BONE MED. COMPT & PF JOINT Anesthesia: General Complications: None Implants: SIGMA FEM.PS5L;4TIB.TRAYRP;INSERT RP5x12.5;ODPAT.38mm;SIMPLEXHVw/GENT 2 Fluids & blood products: INJ 30 mL 0.5%MARCAINEw/EPI INTO INCISION; REMOVED SCREW TIB TUBERCLE Transferred to: Recovery Room
[2018-12-25] MEDS ORDERED: HYDROCODONE/APAP 7.5/325 MG TAB PO PRN (13:29)
[2018-12-25] MEDS ORDERED: MORPHINE 4 MG/ML SYR IV PRN (13:29)
[2018-12-25] MEDS ORDERED: DOCUSATE NA 100 MG CAP PO PRN (13:29)
[2018-12-25] MEDS ORDERED: ONDANSETRON 4 MG/2 ML VIAL IV PRN (13:29)
[2018-12-25] MEDS ORDERED: TRAZODONE 50 MG TABLET PO PRN (13:39)
--- NOTE | 2018-12-25 14:05 | RAD REPORT ---
EXAM DESCRIPTION: RAD - Knee Left 2 View - 12/25/2018 1:34 pm CLINICAL HISTORY: Left knee prosthesis COMPARISON: None. FINDINGS: Cross-table portable AP and lateral views were obtained. Left total knee prosthesis has be en placed. No suspicious bone or implant finding. Skin amina are present anteriorly. IMPRESSION: Placement of a left total knee prosthesis. No suspicious bone or implant finding.
[2018-12-25 15:51] VITALS: BMI 3554.0
[2018-12-25] MEDS: Ringers Lactate 1,000 ML IV SCH (17:11)
[2018-12-25] MEDS: CEFAZOLIN/SWI 1gm 1 GM/10 ML SYR IV SCH (17:11)
[2018-12-25] MEDS: ATORVASTATIN 10 MG TAB PO SCH (20:12)
[2018-12-25] MEDS: TAMSULOSIN 0.4 MG SR CAP PO SCH (20:12)
[2018-12-26] MEDS: CEFAZOLIN/SWI 1gm 1 GM/10 ML SYR IV SCH (00:46)
[2018-12-26 05:29] LABS: Hematocrit 37.7 % (39.6-49.0)
[2018-12-26] MEDS: DOCOSAHEXANOIC AC/EPA 1000 MG PO SCH (08:02)
[2018-12-26] MEDS: VITAMIN D 1000 UNIT TAB PO SCH (08:02)
[2018-12-26] MEDS: VENLAFAXINE HCL 75 MG TABLET PO SCH (08:02)
[2018-12-26] MEDS: OXYBUTYNIN CHLORIDE 5 MG TAB PO SCH (08:02)
[2018-12-26] MEDS: METFORMIN ER 500 MG TAB PO SCH (08:02)
[2018-12-26] MEDS: Ringers Lactate 1,000 ML IV SCH (08:04)
[2018-12-26] MEDS ORDERED: HOME MED 1 EA UNK (Empagliflozin [Jardiance] 10 MG) PO SCH (09:00)
[2018-12-26] MEDS ORDERED: D50W 25 GM/50 ML SYRINGE IV PRN (13:02)
[2018-12-26] MEDS ORDERED: GLUCAGON 1 MG/VIAL IM PRN (13:02)
[2018-12-26] MEDS: HYDROCODONE/APAP 7.5/325 MG TAB PO SCH (13:07)
[2018-12-26] MEDS: HYDROCODONE/APAP 7.5/325 MG TAB PO PRN ×2 (16:09→20:05)
[2018-12-26] MEDS: INSULIN -REGULAR HUMAN 50 UNIT/0.5 ML ML SQ SCH ×2 (16:30→20:09)
--- NOTE | 2018-12-26 16:56 | P.PN ---
Date of Service: 12/26/18 (POD#1) S: THIS PATIENT WAS QUITE HEROIC IN MAKING A FULL LAP AROUND THETHE FLOOR WITH HIS FIRST PHYSICAL THERAPY EFFORT THIS MORNING. THE PATIENT HAS HAD 4 MG OF MORPHINE 2 HOURS AGO AND A SINGLE 7.5/325 NORCO TABLETJUST A FEW MINUTES PRIOR TO MY ARRIVAL. hIS FEMORAL AND SCIATIC NERVE BLOCKS LASTED UNTIL 8:00 THIS MORNING AND QUITE LIKELY HELPED HIM MARCH AROUND THE FLOOR WITH THERAPY THIS MORNING. THE PATIENT IS SITTING IN A BEDSIDE CHAIR WITH HIS LEFT LOWER EXTREMITY EXTENDED STRAIGHT FORWARD ONTO THE SECOND CHAIR FOR SUPPORT. O: THIS PATIENT IS AFEBRILE, VITAL SIGNS ARE STABLE HEMOGLOBIN IS 12.1 THIS MORNING DOWN FROM 13.4 POSTOPERATIVELY AND 14.3 PREOPERATIVELY. PAIN CHART WAS 0,0,0. UNTIL 8 am AND HAS BEEN 7, 3, 9/10 SINCE. THE PATIENT RUBS HIS HAND UP AND DOWN THE POSTERIOR THIGH FROM THE BUTTOCK CREASE DOWN TO THE POPLITEAL SPACE INDICATING HE'S GOT PRESSURE SYMPTOMS AND INTENSE PAIN THAT 4 MG OF MORPHINE "DIDN'T TOUCH". 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 THE PATIENT'S BANDAGES CLEAN AND DRY AND INTACT REVIEW OF X-RAYS SHOW EXCELLENT ALIGNMENT FOR PROSTHETIC COMPONENTS LEFT TOTAL KNEE ARTHROPLASTY. NEUROVASCULAR EXAM IS INTACT TO INCLUDE SENSATION OF THE FIRST WEBSPACE DORSIFLEXION OF THE TOES AND ANKLE AND NORMAL PULSES. A: THIS PATIENT IS MAKING EXCELLENT PROGRESS IN HIS FIRST POSTOP DAY. pAIN MEDICINE WAS INITIALLY CAUTIOUS BECAUSE OF THE PATIENT'S PROFESSED ALLERGY TO CODEINE. THE PATIENT DENIES ANY HALLUCINATIONS OR BAD REACTION TO NORCO. P: NORCO IS INCREASED TO 2 TABLETS 7.5/325 MG EACH 4 HOURS NEEDED ONLY FOR PAIN. MORPHINE IS STOPPED AND DILAUDID 1 MG IV DOSES ARE AUTHORIZED TO BE GIVEN EVERY 4 HOURS ALTERNATING WITH THE BY MOUTH TABLETS ONLY NEEDED FOR SEVERE PAIN. THE PATIENT WILL USE HIS CPM MACHINE ONLY WHEN HIS BED IS FULLY RECLINING TO THE HORIZONTAL POSITION FOR THE UPPER BODY AND HEAD. BEDSIDE SITTING WILL BE DONE WITH A BENT KNEE INSTEAD OF A STRAIGHT LEG RAISING PROVOCATION OF SCIATICA IN THE ATTEMPT TO KEEP THE LEG ELEVATED. MOBILIZATION WILL BE CONTINUED AGGRESSIVELY THIS PATIENT NEEDS TO CLEAR HIS LUNGS AND PREVENT ATELECTASIS/PNEUMONIA.
[2018-12-26] MEDS: HYDROMORPHONE HCL 1 MG/ML INJ IV PRN ×2 (18:24→22:31)
--- NOTE | 2018-12-26 18:58 | P.CNS ---
Date of Consult: 12/26/18 - Date of Service Date of Service: 12/26/18 - History of Present Illness This is a 63-year-old male with history of hypertension hyperlipidemia admitted for osteoarthritis of left knee status post left knee TKA. I was consulted for medical management and postop management. Patient with a possible history diabetes mellitus type 2, on metformin and jardiance at home. He denies any concerns, complaints at this time. States that he is having pain , the working really well with physical therapy on postop day 1. The morphine did not help, though the increase Sherborn did help. His allergy to codeine that is listed in the chart but patient tolerated Sherborn and morphine well. - Allergies Allergies/Reactions: Allergy/AdvReac Type Severity Reaction Status Date / Time codeine Allergy unknown Verified 12/20/18 08:49 - Home Medications Home Medications List: Reviewed Medication Instructions Recorded Pravastatin [Pravachol*] 80 mg PO DAILY 06/27/16 Tamsulosin [Flomax*] 0.4 mg PO BID 06/27/16 Venlafaxine HCl [Effexor*] 150 mg PO DAILY 06/27/16 Aspirin [Aspirin EC 81 MG] 81 mg PO DAILY 12/20/18 Cholecalciferol (Vitamin D3) 1,000 unit PO EVERY 7TH DAY 12/20/18 [Vitamin D 1000 Iu Tab] Empagliflozin [Jardiance] 25 mg PO DAILY 12/20/18 Metformin HCl [Metformin HCl ER] 500 mg PO BID 12/20/18 [place]-3S/Dha/Epa/Fish Oil [[place]-3 1 each PO DAILY 12/20/18 Fish Oil 1,000 mg Sfgl] Oxybutynin Chloride [Ditropan] 10 mg PO DAILY 12/20/18 Trazodone [Desyrel] 50 mg PO BEDTIME PRN PRN 12/20/18 - Review of Systems General: Unremarkable Eyes: Unremarkable ENT: Unremarkable Respiratory: Unremarkable Cardiovascular: Unremarkable Gastrointestinal: Unremarkable Genitourinary: Unremarkable Musculoskeletal: Unremarkable Integumentary: Unremarkable Neurological: Unremarkable Lymphatics: Unremarkable - Past Medical History -: Diabetes mellitus type 2, non insulin dependent -: Hyperlipidemia Has patient received pneumonia vaccine in the past: No - Past Surgical History -: right hip replacement 2016 -: left knee ligamtnt repair 1976 -: right hip/pelvis 1963 - Family History Father History Unknown: Yes -: Cancer Notes: mother heart disease, diabetes, alzheimers. bro-diabetes - Social History Smoking Status: Current every day smoker Alcohol use: No CD- Drugs: No Caffeine use: No Place of Residence: Home - Physical Examination Weight: 182 lb Height: 6 in Vital Signs: Temp Pulse Resp BP Pulse Ox 99 F 73 18 159/80 H 95 12/26/18 16:00 12/26/18 16:00 12/26/18 16:00 12/26/18 16:00 12/26/18 16:00 General: Awake, alert, oriented, not in distress HEENT: Head atraumatic, normocephalic, Conjunctivae non-erythematous, Sclerae white, Ears/Nose no mass, lesion or discharge noted Neck: Supple, No JVD, lymph nodes, bruit or thyromegaly noted Chest: Unremarkable Lungs: Bilateral good equal air entry, Clear to auscultation, No rhonchi, No rales Heart: Normal heart sounds, No murmur or gallop Abdomen: Soft, Bowel sounds normal, No guarding, rigidity, tenderness or mass noted, No hepatosplenomegaly, distention or bruit noted Extremities: No leg edema, No calf tenderness Skin: No rash, ulcer or cellulitis Neurological: No focal neurological deficit External Genitalia: Deferred Rectal: Deferred - Studies Laboratory Data (last 24 hrs) 12/26/18 04:48: Hgb 12.1 L, Hct 37.7 L - Problems (Diagnosis) (1) Osteoarthritis of left knee Current Visit: Yes Status: Acute (2) S/P total knee arthroplasty Current Visit: Yes Status: Acute (3) Diabetes mellitus Current Visit: Yes Status: Chronic Qualifiers: Diabetes mellitus type: type 2 Diabetes mellitus rn long term care insulin use: without jail use Diabetes mellitus complication status: without complication Qualified Code(s): E11.9 - Type 2 diabetes mellitus without complications (4) Hyperlipidemia Current Visit: Yes Status: Chronic Qualifiers: Hyperlipidemia type: unspecified Qualified Code(s): E78.5 - Hyperlipidemia , unspecified (5) Benign prostatic hyperplasia Current Visit: Yes Status: Acute Qualifiers: Lower urinary tract symptom presence: symptoms absent Qualified Code(s): N40.0 - Benign prostatic hyperplasia without lower urinary tract symptoms - Assessment and Plan This is a 63-year-old male with: Diabetes mellitus type 2, noninsulin dependent. Blood sugars stable, continue home medications. Accu-Cheks ACHS along with mild sliding scale insulin. We will continue to monitor and adjust Hyperlipidemia Osteoarthritis of left knee, status post left knee TKA Postop day 1. Doing well postop, working well physical therapy Pain was not well controlled this morning. His [place] was increased to 2. Morphine was switched to Dilaudid. We will continue to monitor to see how he does on Dilaudid. Will make changes as needed BPH Stable, is restart home medication Thank you for this consult. We will continue to follow patient with you.
[2018-12-26] MEDS: TAMSULOSIN 0.4 MG SR CAP PO SCH (20:06)
[2018-12-26] MEDS: ATORVASTATIN 10 MG TAB PO SCH (20:06)
--- NOTE | 2018-12-27 01:48 | OP ---
Date of Procedure: 12/25/2018 Surgeon: Olvin Wolf MD Terminal Press Operator: RAKESH Briceno (gave first line production supervisor services throughout case). Preoperative Diagnosis: Primary osteoarthritis, left knee. Postoperative Diagnosis: Primary osteoarthritis, left knee. Primary Procedure: Left total knee arthroplasty with computer navigation, imageless. Indications: This 63-year-old male has had severe limiting pain with weightbearing on his left knee after years of struggling with decreasing activities and increasing pain limitations. The patient frank s elected after discussion of risks and benefits to have a left total knee arthroplasty. Technique: The patient was taken to the operating room and given a general anesthesia on the operati ve table. A bolster was placed under the left hip and a foot rest was put on the table to hold the k nee at 90 degrees flexion. The left lower extremity was prepped and draped after a tourniquet was pl aced on the proximal thigh. There was a time-out called and all pertinent facts were discussed, and it was decided to proceed with the operation as planned. After prepping and draping, the incision wa s marked and the operative site was covered with Ioban sticky drape. Then, the Esmarch bandage was u sed to exsanguinate the limb and the tourniquet was raised to 300 mmHg and left up for 2 hours. The tourniquet was deflated and left down for 30 minutes and then an additional hour of tourniquet time w as used for cementing and initiating closure. The incision was made longitudinally over the medial s bhupinder of the tibial tubercle, extending proximally across the medial third of the patella, to end 4-6 c m above the superior pole of the patella. The incision was carried sharply through skin and subcutan eous tissue. The medial parapatellar approach was utilized. A [place] was used to probe and look for the cortical screw that was placed in a prior operation for realignment of the patella. That screw w as cleared and then removed with a flat-head screwdriver. Its removal gave appropriate room for inse rtion of the keel for the tibial tray. The incision allowed eversion of the patella, and the patella was measured at 22 mm in thickness, and the 38 mm prosthetic component was chosen as an appropriate fit, so 13.5 mm were left in thickness as the articular surface was cut away. PEG holes were drilled and the prosthetic trial was put in position to find the measurements, again 22 mm in thickness. A metal radha was used to replace the prosthetic patellar trial. The patella was everted and sharp debr idement was carried out for the anterior knee. 3 mm threaded pins were placed distally in the mid ti bial area through puncture wounds and inside the proximal incision for the medial distal femur. The pins were placed through both cortexes to provide stable anchor for the computer arrays. Once the ar rays were in place, the limb was moved in circumduction to calculate the center of rotation for the f emoral head and then the femoral data was registered in sequence as was the tibial data. The compute r solved for a size 6 femoral component and a size 5 tibial tray. The components were downsized duri ng the operation to reduce the flexion gap. After navigating the cutting jig for the tibia into [facility] e, the tibial cut was made and adjusted until verified with the flat-footed array. Then, the tension ometers were put in place and the indication was for medial ligament releases. Those releases were m sindy progressing to the distal femoral cut once the ligaments were adequately balanced. Distal femora l cut was navigated and cut and verified. Then, the 4-in-1 cutting jig was navigated into place. An terior cut was made and verified before the other remaining posterior cuts and chamfer cuts were comp leted. The box cutting guide was placed in position and those cuts were made with the reciprocating saw. The size 5 Sigma femoral posterior stabilized component for the left lower extremity was a good fit with the trial prosthesis. At that point, the double prong Hohmann was placed behind the tibial metaphysis and it was pulled forward with traction so that the proximal femur could be prepared. Th e size 4 tibial tray was chosen and the trial was placed in position with reaming and capping in the keel anchor for the trial component. A 10 mm thick insert was used and felt to be a little loose med ially. Therefore, the size 12-1/2 trial was placed in position and it was quite stable extending to 0 and flexing to 120 degrees. Then, all trial components were removed and the Simpulse lavage was ut ilized. Additional drill holes were made for cement injection. As the cut cancellous surfaces were being dried, the cement was mixed, placing 2 batches of GSMV mixed with gentamicin into a cement gun for injection technique, initially started with injection of cement into the proximal end of the cut tibial plateau. The tibial tray was tapped in position and excess cement was curetted away. The bianca ent was injected in the distal femur and the femoral component was tapped into position. The trial i nsert, 10 mm thick, was placed in between the components as the knee was extended. Attention was tur camden to the patella where the cut surface had injection of cement and the patellar button was clamped into position with excess cement removed. While the cement was setting, additional irrigation was ca rried out. Hemostasis was encouraged by using the Aquamantys bipolar Bovie as well as the monopolar Bovie along the margins of the incisions. Once the cement was set, the 12.5 mm trial was found to be a better fit, so the trial insert was removed and the final insert chosen was the RP size 5 x 12.5 m m, go with the Sigma femoral component, posterior stabilized, size 5 left and the tibial tray, size 4 RP component was used along with the oval dome patella, which was 38 mm in diameter. All components were cemented in place with Simplex HV cement with gentamicin 2 batches. Closure was effected with #1 Vicryl for fascial layers, 2-0 Vicryl for subcutaneous layers, and skin amina for the skin. The margins of the incision were injected with 30 mL of 0.5% Marcaine with epinephrine. The bandage cho sen was an Aquacel bandage placed over the bent knee and then a shorter bandage placed over the two p unctures distal to the main incision which were also closed with skin amina. Estimated blood loss was 50 mL. The patient was taken to the recovery room having tolerated this procedure well. The scr ew removed from the area of the tibial tubercle was sent to the lab for identification of it. AWA/ELLA Voice ID: [id number] Report ID: [id number]
[2018-12-27] MEDS: HYDROCODONE/APAP 7.5/325 MG TAB PO PRN ×2 (03:27→08:59)
[2018-12-27] MEDS: Ringers Lactate 1,000 ML IV SCH (04:30)
[2018-12-27 06:07] LABS: Hematocrit 36.1 % (39.6-49.0)
[2018-12-27] MEDS: INSULIN -REGULAR HUMAN 50 UNIT/0.5 ML ML SQ SCH ×4 (07:30→21:00)
[2018-12-27] MEDS: METFORMIN ER 500 MG TAB PO SCH (08:58)
[2018-12-27] MEDS: OXYBUTYNIN CHLORIDE 5 MG TAB PO SCH (08:58)
[2018-12-27] MEDS: VENLAFAXINE HCL 75 MG TABLET PO SCH (08:58)
[2018-12-27] MEDS: DOCOSAHEXANOIC AC/EPA 1000 MG PO SCH (08:58)
[2018-12-27] MEDS: VITAMIN D 1000 UNIT TAB PO SCH (08:59)
[2018-12-27] MEDS: HYDROCODONE/APAP 7.5/325 MG TAB PO SCH (12:34)
[2018-12-27] MEDS: HYDROMORPHONE HCL 1 MG/ML INJ IV PRN ×2 (15:05→21:18)
[2018-12-27] MEDS: ASPIRIN EC 81 MG TAB PO SCH (15:13)
[2018-12-27] MEDS ORDERED: ENOXAPARIN 40 MG/0.4 ML SQ SCH (17:00)
--- NOTE | 2018-12-27 17:57 | P.PN ---
Subjective Date of Service: 12/27/18 Subjective: No C/O voiced, Improving, Working w/ PT Review of Systems 10-point ROS is otherwise unremarkable Physical Examination - Vital Signs Temperature: 98.1 F Blood Pressure: 139/82 Pulse: 79 Respirations: 18 Pulse Ox (%): 93 - Physical Exam General: Alert, In no apparent distress, Oriented x3 HEENT: Atraumatic, PERRLA, EOMI Neck: Supple, JVD not distended Respiratory: Clear to auscultation bilaterally, Normal air movement Cardiovascular: Regular rate/rhythm, Normal S1 S2 Gastrointestinal: Normal bowel sounds, No tenderness Musculoskeletal: No tenderness Integumentary: No rashes Neurological: Normal speech, Normal tone, Normal affect Lymphatics: No axilla or inguinal lymphadenopathy - Studies Laboratory Data (last 24 hrs) 12/27/18 05:21: Hgb 12.2 L, Hct 36.1 L Assessment And Plan - Current Problems (Diagnosis) (1) Osteoarthritis of left knee Current Visit: Yes Status: Acute (2) S/P total knee arthroplasty Current Visit: Yes Status: Acute (3) Diabetes mellitus Current Visit: Yes Status: Chronic Qualifiers: Diabetes mellitus type: type 2 Diabetes mellitus alf insulin use: without stock preparation supervisor use Diabetes mellitus complication status: without complication Qualified Code(s): E11.9 - Type 2 diabetes mellitus without complications (4) Hyperlipidemia Current Visit: Yes Status: Chronic Qualifiers: Hyperlipidemia type: unspecified Qualified Code(s): E78.5 - Hyperlipidemia , unspecified (5) Benign prostatic hyperplasia Current Visit: Yes Status: Acute Qualifiers: Lower urinary tract symptom presence: symptoms absent Qualified Code(s): N40.0 - Benign prostatic hyperplasia without lower urinary tract symptoms - Plan This is a 63-year-old male with: Diabetes mellitus type 2, noninsulin dependent. Blood sugars stable, continue home medications. Accu-Cheks ACHS along with mild sliding scale insulin. We will continue to monitor and adjust Hyperlipidemia Osteoarthritis of left knee, status post left knee TKA Postop day 2. Doing well postop, working well physical therapy Pain was not well controlled this morning. His [place] was increased to 2. Morphine was switched to Dilaudid. We will continue to monitor to see how he does on Dilaudid. Will make changes as needed BPH Stable, is restart home medication Thank you for this consult. We will continue to follow patient with you.
--- NOTE | 2018-12-27 19:32 | P.PN ---
Date of Service: 12/27/18 (POD#2) S: THIS PATIENT MADE A FULL LAP AROUND THE FLOOR (270' EACH TRIP) WITH HIS AM & PM PHYSICAL THERAPY EFFORTS TODAY. HE IS QUITE PLEASED WITH THE CHANGE IN PAIN MEDICATIONS NOW CONTROLLING SYMPTOMS APPROPRIATELY SO THAT MOST OF HIS PAIN INTENSITY NUMBERS ARE TWOS AND FOURS NOW. O: THIS PATIENT IS AFEBRILE, VITAL SIGNS ARE STABLE HEMOGLOBIN IS 12.2, STABLE THIS MORNING. CPM IS WELL TOLERATED AT 70 RANGE OF MOTION. THE PATIENT'S BANDAGE IS CLEAN AND DRY AND INTACT. NEUROVASCULAR EXAM IS INTACT WITH NORMAL SENSATION OF THE FIRST WEB SPACE, DORSIFLEXION OF THE TOES AND ANKLE, AND NORMAL PULSES. A: THIS PATIENT CONTINUES TO MAKE EXCELLENT PROGRESS IN HIS 2ND POSTOP DAY. PAIN MEDICINE CONSISTING OF NORCO 7.5/325 2 TABS P.O. Q 4 HRS PRN MODERATE PAIN , AND DILAUDID 1 MG IV EVERY 4 HOURS WHEN NECESSARY FOR SEVERE PAIN HAS BEEN EFFECTIVE IN CONTROLLING HIS SYMPTOMS. THE PATIENT DENIES ANY HALLUCINATIONS OR BAD REACTION TO NORCO OR DILAUDID. P: THE PATIENT IS ANTICIPATING DISCHARGE TOMORROW. A CPM MACHINE HAS BEEN ARRANGED FOR HOME USE TO BE USED 3 OR 4 HOURS PER DAY AT 70 AT A SLOW SPEED, INCREASING 5 EACH DAY TOLERATED TO A MAXIMUM OF 120. THE PATIENT IS ASKING FOR APPOINTMENT TO OUTPATIENT PHYSICAL THERAPY AT THE [facility] LOCATION ON [facility]. HE WILL NEED GAIT TRAINING AND TRANSFERS WEIGHT BEARING TOLERATED LEFT LOWER EXTREMITY AND ACTIVE ASSIST AND PASSIVE RANGE OF MOTION THERAPIESALONG WITH CONDITIONING OF UPPER AND LOWER EXTREMITIES. THE PATIENT WILL RETURN TO MY OFFICE FOR STAPLE REMOVAL APPROXIMATELY 1-2 WEEKS POST DISCHARGE. DISCHARGE PAIN MEDICATION WILL BE NORCO 7.5/325 ONE BY MOUTH EVERY 4-6 HOURS WHEN NECESSARY FOR PAIN, #40. THE PATIENT WILL RESUME ALL HOME MEDICATIONS INCLUDING E.C. ASPIRIN 81 MG DAILY. LOVENOX 40 MG SUBCUTANEOUS INJECTIONS WILL BE PRESCRIBED DAILY FOR 12 DAYS. PRIOR TO DISCHARGE THE PATIENT WILL HAVE A NEW AQUACEL BANDAGE APPLIED AFTER ALCOHOL SWABS ARE USED WITH STERILE TECHNIQUE.
[2018-12-27] MEDS: TAMSULOSIN 0.4 MG SR CAP PO SCH (21:19)
[2018-12-27] MEDS: ATORVASTATIN 10 MG TAB PO SCH (21:19)
[2018-12-28] MEDS: HYDROCODONE/APAP 7.5/325 MG TAB PO PRN ×2 (00:27→08:50)
[2018-12-28 03:55] VITALS: O2SAT 98
[2018-12-28 05:12] LABS: Hematocrit 33.4 % (39.6-49.0)
[2018-12-28] MEDS: INSULIN -REGULAR HUMAN 50 UNIT/0.5 ML ML SQ SCH ×2 (07:30→11:14)
[2018-12-28] MEDS: OXYBUTYNIN CHLORIDE 5 MG TAB PO SCH (08:52)
[2018-12-28] MEDS: VENLAFAXINE HCL 75 MG TABLET PO SCH (08:52)
[2018-12-28] MEDS: ASPIRIN EC 81 MG TAB PO SCH (08:52)
[2018-12-28] MEDS: VITAMIN D 1000 UNIT TAB PO SCH (08:52)
[2018-12-28] MEDS: METFORMIN ER 500 MG TAB PO SCH (08:52)
[2018-12-28] MEDS: DOCOSAHEXANOIC AC/EPA 1000 MG PO SCH (08:52)
[2018-12-28 09:08] VITALS: TEMP 97.2
[2018-12-28 12:27] VITALS: BP 126/73
[2018-12-28] MEDS: HYDROCODONE/APAP 7.5/325 MG TAB PO SCH (13:05)
--- NOTE | 2018-12-28 13:12 | P.PN ---
Date of Service: 12/28/18 (POD#3) S: THIS PATIENT MADE HIS FULL LAP AROUND THE FLOOR THIS AM WITH IMPROVED GAIT. HE IS ANXIOUS TO PROCEED WITH DISCHARGE TODAY. O: AFEBRILE, VSS HEMOGLOBIN IS 11.0 THIS MORNING. CPM IS WELL TOLERATED AT 75 RANGE OF MOTION. THE PATIENT'S BANDAGE WAS CHANGED WITH NEW AQUACEL BANDAGES APPLIED. NEUROVASCULAR EXAM IS INTACT WITH NORMAL SENSATION OF THE FIRST WEB SPACE, DORSIFLEXION OF THE TOES AND ANKLE, AND NORMAL PULSES. A: THIS PATIENT IS READY FOR DISCHARGE ON HIS 3ND POSTOP DAY. PAIN MEDICINE WILL CONSIST OF NORCO 7.5/325 1 TAB P.O. Q 4 - 6 HRS PRN PAIN. P: A CPM MACHINE HAS BEEN ARRANGED FOR HOME USE TO BE USED 3 OR 4 HOURS PER DAY AT 70 AT A SLOW SPEED, INCREASING 5 EACH DAY TOLERATED TO A MAXIMUM OF 120. THE PATIENT IS SET UP FOR HOME HEALTH ASSESSMENT TOMORROW TO PROVIDE ADL, AQUACEL BANDAGE CHANGE Q 5 TO 7 DAYS OR PRN, AND PT FOR GAIT TRAINING AND TRANSFERS WEIGHT BEARING TOLERATED LEFT LOWER EXTREMITY AND ACTIVE ASSIST AND PASSIVE RANGE OF MOTION THERAPIES ALONG WITH CONDITIONING OF UPPER AND LOWER EXTREMITIES. THE PATIENT WILL RETURN TO MY OFFICE FOR STAPLE REMOVAL APPROXIMATELY 1-2 WEEKS POST DISCHARGE. DISCHARGE PAIN MEDICATION WILL BE NORCO 7.5/325 ONE BY MOUTH EVERY 4-6 HOURS WHEN NECESSARY FOR PAIN, #40. THE PATIENT WILL RESUME ALL HOME MEDICATIONS INCLUDING E.C. ASPIRIN 81 MG DAILY. LOVENOX 40 MG SUBCUTANEOUS INJECTIONS WILL BE PRESCRIBED DAILY FOR 12 DAYS.
--- NOTE | 2018-12-28 16:44 | P.PN ---
Subjective Date of Service: 12/28/18 Subjective: No C/O voiced, Tolerating diet, Improving, Working w/ PT Patient seen and examined at bedside. No family at bedside. Chart reviewed and case discussed with nursing staff. Per patient, he is doing well. Walking and working well with physical therapy. Pain is well controlled. No complaints this morning Review of Systems 10-point ROS is otherwise unremarkable Physical Examination - Vital Signs Temperature: 97.2 F Blood Pressure: 126/73 Pulse: 64 Respirations: 14 Pulse Ox (%): 96 - Physical Exam General: Alert, In no apparent distress, Oriented x3 HEENT: Atraumatic, PERRLA, EOMI Neck: Supple, JVD not distended Respiratory: Clear to auscultation bilaterally, Normal air movement Cardiovascular: Regular rate/rhythm, Normal S1 S2 Gastrointestinal: Normal bowel sounds, No tenderness Musculoskeletal: No tenderness Integumentary: No rashes Neurological: Normal speech, Normal tone, Normal affect Lymphatics: No axilla or inguinal lymphadenopathy - Studies Laboratory Data (last 24 hrs) 12/28/18 04:26: Hgb 11.0 L, Hct 33.4 L Assessment And Plan - Current Problems (Diagnosis) (1) Osteoarthritis of left knee Status: Acute (2) S/P total knee arthroplasty Status: Acute (3) Diabetes mellitus Status: Chronic Qualifiers: Diabetes mellitus type: type 2 Diabetes mellitus petroleum terminal plant operator insulin use: without petroleum terminal plant operator use Diabetes mellitus complication status: without complication Qualified Code(s): E11.9 - Type 2 diabetes mellitus without complications (4) Hyperlipidemia Status: Chronic Qualifiers: Hyperlipidemia type: unspecified Qualified Code(s): E78.5 - Hyperlipidemia , unspecified (5) Benign prostatic hyperplasia Status: Acute Qualifiers: Lower urinary tract symptom presence: symptoms absent Qualified Code(s): N40.0 - Benign prostatic hyperplasia without lower urinary tract symptoms - Plan This is a 63-year-old male with: Diabetes mellitus type 2, noninsulin dependent. Blood sugars stable, continue home medications. Hyperlipidemia Osteoarthritis of left knee, status post left knee TKA Postop day 3. Doing well postop, working well physical therapy Pain was not well controlled this morning. His [place] was increased to 2. Morphine was switched to Dilaudid. We will continue to monitor to see how he does on Dilaudid. Will make changes as needed BPH Stable, is restart home medication Thank you for this consult. He is cleared for discharge from a medical point of view.
== END 2018-12-28 14:35 | disposition home health service (06) | DRG 470 ==
LOC: OR 06:18 → 2ND 13:30
PROVIDERS: ADMIT Orthopaedic Surgery; ATTEND Orthopaedic Surgery
PROC: 0SRD069 Replacement of Left Knee Joint with Oxidized Zirconium on Polyethylene Synthetic Substitute, Cemented, Open Approach (ICD-10-PCS; principal; 2018-12-25 07:30)
DX: M17.12 Unilateral primary osteoarthritis, left knee (principal); E78.5 Hyperlipidemia, unspecified; E11.9 Type 2 diabetes mellitus without complications; Z79.84 Long term (current) use of oral hypoglycemic drugs; F17.210 Nicotine dependence, cigarettes, uncomplicated; N40.0 Benign prostatic hyperplasia without lower urinary tract symptoms
CPT/HCPCS: 36415; 71046; 80053; 80076; 81003; 82962; 83036; 85014; 85018; 85025; 85610; 85730; 86850; 86900; 86901; 88300; 88304; 88305; 88311; 97116; 97162; 97530; J0690; J1170; J1650; J2250; J2704; J2795; J3010; J7030